=== PATIENT | female | born 1985 | race Two or more races ===

== ENCOUNTER 2021-01-28 02:31 | Emergency (ER) | payer SELFPAY ==
[~2021-01-28] VITALS: Ht 157.5 cm; Wt 72.3 kg
[2021-01-28 02:33] VITALS: BP 125/78
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
[2021-01-28 03:39] LABS: BILIRUBIN,URINE NEGATIVE (NEG); CLARITY,URINE CLEAR; COLOR,URINE YELLOW; NITRITE,URINE NEGATIVE (NEG); PROTEIN,URINE NEGATIVE (NEG-TRACE); UROBILINOGEN,URINE 0.2 mg/dL (0.2 mg/dL)
[2021-01-28 03:45] LABS: BARBITURATES NEG (NEG); BENZODIAZEPINES POS (NEG); CANNABINOIDS NEG (NEG); COCAINE NEG (NEG); METHADONE NEG (NEG); OPIATES NEG (NEG); PHENCYCLIDINE NEG (NEG)
[2021-01-28 03:46] LABS: AMPHETAMINE/METHAMPHETAMINE POS (NEG)
[2021-01-28 03:51] LABS: BACTERIA,URINE 0 /HPF (0-FEW); RBC,URINE 0 /HPF (0-2); WBC,URINE RARE /HPF (0-4)
== END 2021-01-28 03:45 | disposition home or self-care (01) ==
LOC: ER 02:31
DX: F10.229 Alcohol dependence with intoxication, unspecified (principal); Y90.9 Presence of alcohol in blood, level not specified
CPT/HCPCS: 80307; 81001; 81025; 82962; 99283